=== PATIENT | male | born 2000 | race Hispanic/Latino ===

== ENCOUNTER 2020-12-23 05:14 | Emergency (ER) | payer OTHER, SELFPAY ==
[2020-12-23] MEDS ORDERED: Sodium Chloride 0.9% 1,000 ML ONE (05:44)
[2020-12-23] MEDS ORDERED: Boostrix 0.5 ML (Tdap) VIAL ONE (05:44)
[2020-12-23] MEDS ORDERED: Lidocaine 1% w/Epinephrine 1:100K 20 ML VIAL ONE (05:53)
[2020-12-23 05:55] LABS: #Basophils 0.1 thou/uL (0.0-0.2); #Eosinphils 0.6 thou/uL (0.0-0.7); #Lymphocytes 2.5 thou/uL (1.20-3.40); #Monocytes 0.9 thou/uL (0.11-0.59); #Neutrophils 5.5 thou/uL (1.40-6.50); %Basophils 1.4 % (0.0-1.0); %Eosinophils 6.5 % (0.0-10.0); %Lymphocytes 26.1 % (21.0-51.0); %Monocytes 8.9 % (0.0-10.0); %Neutrophils 57.2 % (42.0-75.0); Hemoglobin 14.9 g/dL (14.0-18.0); Mean Corpuscular HGB CONC 32.7 g/dL (32.0-36.0); Mean Corpuscular Hemoglobin 30.3 pg (27.0-31.0); Mean Corpuscular Volume 92.5 fL (78.0-98.0); Mean Platelet Volume 10.2 fL (7.4-10.4); Platelet Count 218 thou/uL (130-400); RBC Distribution Width 11.3 % (11.5-14.5); Red Blood Cell (RBC) Count 4.93 mill/uL (4.70-6.10); White Blood Cell (WBC) Count 9.7 thou/uL (4.8-10.8)
[2020-12-23 06:15] LABS: ALT (SGPT) 22 U/L (8-55); AST (SGOT) 29 U/L (5-34); Albumin 4.8 g/dL (3.5-5.0); Alkaline Phosphatase 88 U/L (40-110); Anion Gap 14 mmol/L (10-20); BUN (Urea Nitrogen) 11 mg/dL (8.9-20.6); Bilirubin, Total 1.3 mg/dL (0.2-1.2); Calc. Creatinine Clearance 0 mL/min (70-130); Calcium 9.8 mg/dL (7.8-10.44); Carbon Dioxide 24 mmol/L (22-29); Chloride 106 mmol/L (98-107); Glucose 91 mg/dL (70-105); Potassium 3.1 mmol/L (3.5-5.1); Protein, Total 7.8 g/dL (6.0-8.3); Sodium 141 mmol/L (136-145)
[2020-12-23] MEDS ORDERED: Potassium Chloride 20 MEQ TAB ONE (06:40)
[2020-12-23 08:59] LABS: Troponin I Less than 0.010 ng/mL (< 0.028)
[2020-12-23] MEDS ORDERED: Iopamidol 370 76% 100 ML VIAL ONE (12:35)
== END 2020-12-23 09:37 | disposition home or self-care (01) ==
LOC: MADERS 05:14
DX: S01.511A Laceration without foreign body of lip, initial encounter (principal); S20.212A Contusion of left front wall of thorax, initial encounter; W22.8XXA Striking against or struck by other objects, initial encounter
CPT/HCPCS: 12011; 71260; 80053; 84484; 85025; 90471; 90715; 93005; J7050; Q9967